=== PATIENT | male | born 1975 | race Caucasian/White ===

== ENCOUNTER → 2018-12-01 | Outpatient (CLI) | payer BC, OTHER ==
--- NOTE | 2018-12-01 11:32 | Diagnostic Imaging Report ---
CT ABDOMEN/PELVIS WO TECHNIQUE: Unenhanced CT imaging of the abdomen and pelvis was performed. 2-D reformats are created and submitted for interpretation. Automatic exposure controls were utilized to optimize patient dose. INDICATION: Left flank pain. COMPARISON: None available. FINDINGS: Evaluation of the abdominal viscera is mildly limited without contrast. Lower chest: The lung bases are clear. No pericardial or pleural effusion. Peritoneum: No free intraperitoneal air or fluid. Liver and biliary system: Unenhanced liver is normal. The gallbladder is normal. No biliary duct dilation. Spleen and Pancreas: Spleen is normal. Unenhanced pancreas is grossly normal. Adrenals: Normal. tract: Mild left hydronephrosis and hydroureter due to a 9 mm obstructing stone in the distal left ureter. This stone is located approximately 3-4 cm above the ureterovesicular junction. There are a few punctate nonobstructing left renal stones also present. No right renal or ureteral stones. Urinary bladder is normally filled without wall thickening. The prostate is not enlarged. GI tract: Stomach is partially filled with fluid and air, and there is no pathologic wall thickening. No bowel obstruction. No pericolonic inflammatory changes. Normal appendix. Vasculature and Lymph nodes: Normal caliber aorta. No abdominal or pelvic lymphadenopathy. Musculoskeletal: No concerning osseous lesion. IMPRESSION: 1. Mild to moderate left hydronephrosis due to a 9 mm obstructing stone in the distal left ureter. 2. There are additional punctate nonobstructing left renal stones. Dictated by: Dictated on workstation # [id number]
--- NOTE | 2018-12-01 12:59 | Diagnostic Imaging Report ---
INDICATION: Back pain and hematuria. TIME OF EXAM: 10:25 a.m. FINDINGS: Calcific density in the left pelvis is noted corresponding to distal left ureteric calculus noted on recent CT. Punctate calcifications overlie the lower pole of the left kidney as well. No right-sided renal calculi are seen. Bowel gas pattern is unremarkable. IMPRESSION: Left-sided urinary tract calculi, as described. Dictated by: Dictated on workstation # [id number]
== END ==
LOC: RAD 10:08
PROVIDERS: ATTEND Urology
DX: N13.2 Hydronephrosis with renal and ureteral calculous obstruction (principal)
CPT/HCPCS: 74018; 74176

== ENCOUNTER 2018-12-08 07:46 | Day surgery (SDC) | payer OTHER ==
[2018-12-08] VITALS (10 sets, daily range): BP systolic 114–143; BP diastolic 77–99
[~2018-12-08] VITALS: Ht 182.8 cm; Wt 84.0 kg
[2018-12-08] MEDS ORDERED: cefTRIAXone FOR IV USE 1,000 MG in WATER (STERILE) FOR INJECTION 10 ML IV ONE (08:15)
--- NOTE | 2018-12-08 08:32 | Diagnostic Imaging Report ---
INDICATION: Preop ureteral stone Abdominal film obtained at 8:05 a.m. and is compared to 12/01/2018. Calcification on the left side of the pelvis compatible with patient's known left ureteral stone is unchanged in position compared to 12/01/2018. Abdominal bowel gas pattern is unremarkable. There is no overt bony abnormality. IMPRESSION: No change in position of the calcification in the left of the pelvis compatible with patient's known left ureteral stone. Abdominal bowel gas pattern appears normal. Dictated by: Dictated on workstation # [id number]
--- NOTE | 2018-12-08 08:44 | Progress Note-Pre Operative ---
Pre-Operative Progress Note H&P Reviewed The H&P was reviewed, patient examined and no changes noted. Date Seen by Provider: Dec 08, 2018 Time Seen by Provider: 08:44 Date H&P Reviewed: Dec 08, 2018 Time H&P Reviewed: 08:44 Pre-Operative Diagnosis: LT DISTAL URETERAL STONE JULIO HERRERA MD Dec 08, 2018 08:44
[2018-12-08] MEDS: LACTATED RINGERS 1,000 ML IV PRN ×2 (08:55→10:42)
[2018-12-08] MEDS ORDERED: MIDAZOLAM 2 MG/2 ML (VERSED) VIAL ONE (09:00)
[2018-12-08] MEDS ORDERED: SEVOFLURANE (ULTANE) 15 ML INHAL SOLN ONE ×2 (09:00→10:54)
[2018-12-08] MEDS ORDERED: ROCURONIUM 10 MG/ML 5 ML SYRINGE IV ONE ×2 (09:00→09:46)
[2018-12-08] MEDS ORDERED: ONDANSETRON 4 MG/2 ML (SDV) Z0FRAN ONE (09:00)
[2018-12-08] MEDS ORDERED: proPOfol 200 MG/20 ML (DIPRIVAN) VIAL IV ONE (09:00)
[2018-12-08] MEDS ORDERED: DEXAMETHASONE 10 MG/ML (DECADRON) 1 ML VIAL ONE ×2 (09:00→10:10)
[2018-12-08] MEDS ORDERED: LIDOCAINE PF 2% 5 ML (XYLOCAINE) VIAL ONE (09:00)
[2018-12-08] MEDS ORDERED: fentaNYL INJECTION 100 MCG/2 ML AMP ONE (09:00)
[2018-12-08] MEDS ORDERED: ONDANSETRON 4 MG/2 ML (SDV) Z0FRAN IVP PRN ×2 (09:45→11:00)
[2018-12-08] MEDS ORDERED: morphine INJ 10 MG/ML 1ML (SYR OR VIAL) IVP ONE ×2 (09:45→11:00)
[2018-12-08] MEDS ORDERED: MEPERIDINE (DEMEROL) INJ 50 MG/ML IVP ONE ×2 (09:45→11:00)
[2018-12-08] MEDS ORDERED: FUROSEMIDE 40 MG/4 ML INJ (LASIX) ONE (10:10)
[2018-12-08] MEDS ORDERED: KETOROLAC 30 MG/ML VIAL ONE (10:10)
--- NOTE | 2018-12-08 10:58 | Progress Note-Post Operative ---
Post-Operative Progess Note Surgeon (s)/Sales Training Manager (s) Surgeon JULIO HERRERA MD Sales Training Manager: NONE Pre-Operative Diagnosis LT DISTAL URETERAL STONE Post-Operative Diagnosis SAME Procedure & Operative Findings Date of Procedure 12/08/18 Procedure Performed/Findings CYSTOSCOPY, RT RETROGRADE UROGRAM, LT URETEROSCOPY WITH STONE LITHOTRIPSY Anesthesia Type GENERAL Estimated Blood Loss Estimated blood loss (mL): NONE Specimens/Packing Specimens Removed NONE Packing: NONE JULIO HERRERA MD Dec 08, 2018 10:58
--- NOTE | 2018-12-08 10:59 | Discharge Inst-Urology ---
Discharge Inst-Urology Reconcile Patient Problems Problems Reviewed?: Yes Patient Instructions/Follow Up Plan/Assessment/Instructions Please make appointment to been seen in office in [address] home Increase oral fluids for 48 hours and then as needed. Diet and Activity as tolerated. If questions or concerns contact your physician Or seek help at emergency department. JULIO HERRERA MD Dec 08, 2018 10:59
[2018-12-08] MEDS ORDERED: HYDROmorphone 2 MG/ML VIAL (DILAUDID) IV ONE (11:00)
[2018-12-08] MEDS ORDERED: fentaNYL INJECTION 100 MCG/2 ML AMP IVP ONE (11:00)
[2018-12-08] MEDS ORDERED: PROMETHAZINE INJ 25 MG/ML (PHENERGAN) AMP IVP ONE (11:00)
--- NOTE | 2018-12-08 12:00 | NUR ---
VOIDED 650 CC CLEAR LIGHT RED URINE WITH X3 SMALL STONE FRAGMENTS PASSED. DENIES COMPLAINTS, TAKING PO FLUIDS WITHOUT PROBLEM.
[2018-12-08] MEDS ORDERED: SULF1TAB35 PO (12:46)
[2018-12-08] MEDS ORDERED: TAMS0.4C98 PO (12:46)
[2018-12-08] MEDS ORDERED: PHEN-640 PO (12:46)
[2018-12-08] MEDS ORDERED: HYDR-3870 PO (12:46)
--- NOTE | 2018-12-08 12:57 | NUR ---
ALERT, CHEERFUL, DENIES COMPLAINTS. VOIDED ADDITIONAL 600 CC CLEAR, PINK URINE WITHOUT PROBLEM. STATES HE IS READY FOR DISMISSAL.
--- NOTE | 2018-12-08 13:44 | Anesthesia-General Post-Op ---
General Patient Condition Mental Status/LOC: Same as Preop Cardiovascular: Satisfactory Nausea/Vomiting: Absent Respiratory: Satisfactory Pain: Controlled Complications: Absent Post Op Complications Complications None Follow Up Care/Instructions Patient Instructions None needed. Anesthesia/Patient Condition Patient Condition Patient is doing well, no complaints, stable vital signs, no apparent adverse anesthesia problems. No complications reported per nursing. UNA JIMENEZ CRNA Dec 08, 2018 13:44
--- NOTE | 2018-12-08 14:27 | Diagnostic Imaging Report ---
INDICATION: Status post ESWL. COMPARISON: CT dated 12/01/2018. FINDINGS: Single supine radiographic view of the abdomen was obtained. There is subtle asymmetric increased opacity projecting over the inferolateral cortex of the left sacrum, which is felt to correspond to interval fragmentation of previously described distal ureteral calculus. No other unexpected extraosseous calcifications or radiopaque foreign bodies are seen. Small bowel loops are nondistended. Osseous structures show no gross acute abnormalities. IMPRESSION: 1. Probable interval fragmentation of distal left ureteral calculus. Dictated by: Dictated on workstation # [id number]
--- NOTE | 2018-12-08 16:29 | OPERATIVE REPORT ---
DATE OF SERVICE: 12/08/2018 PREOPERATIVE DIAGNOSIS: Left distal ureteral stone, possible right. POSTOPERATIVE DIAGNOSIS: Left distal ureteral stone, possible right. OPERATION PERFORMED: Cystoscopy, right retrograde urogram. Left ureteroscopy with stone lithotripsy. SURGEON: Fabrice Herrera MD ANESTHESIA: General. COMPLICATIONS: None. DESCRIPTION OF PROCEDURE: With the patient in lithotomy position, genitalia were prepped and draped in the usual sterile fashion. Cystoscope was introduced under vision. The anterior urethra was normal. The prostate was nonobstructing. Bladder neck was opened. Ureteric orifices were normal except for sluggish efflux on the left side. The right side was normal. Using the foroblique lens, I passed a ureteral catheter in the right ureteral orifice intramural portion and injected contrast. There was no filling defect and complete emptying of the system confirming no stones on the right side because the patient was complaining of pain on the right side mostly. Then, I dilated the left ureteral orifice intramural portion to accommodate the left, I accommodated 6.9 Serbian semi-rigid ureteroscope. The stone was visualized. It was large and impacted and hard. I was able to break it and change the fragments proximally and break them up into very small fragments, some of them washed into the bladder. The ureter was safe at all time. The ureteroscope was removed. The cystoscope was reinserted to empty the bladder. The patient tolerated the procedure and anesthesia well and was sent to recovery room in stable condition. Job ID: [id number] DocumentID: [id number] Dictated Date: 12/08/2018 11:02:26 Waistline Joiner Date: 12/08/2018 16:28:50 Dictated By: FABRICE HERRERA MD
== END 2018-12-08 12:57 | disposition home or self-care (01) ==
LOC: SDC 07:46
PROVIDERS: ATTEND Urology
DX: N20.1 Calculus of ureter (principal); Z79.891 Long term (current) use of opiate analgesic; Z79.899 Other long term (current) drug therapy
CPT/HCPCS: 74018; 87081

== ENCOUNTER 2018-12-25 12:13 | Outpatient (RCR) | payer OTHER ==
[~2018-12-25 12:13] MED LIST: HYDR-3870 PO; PHEN-640 PO; SULF1TAB35 PO; TAMS0.4C98 PO
== END 2019-03-25 | disposition home or self-care (01) ==
LOC: LAB 12:13
PROVIDERS: ATTEND Urology
DX: N20.1 Calculus of ureter (principal)
CPT/HCPCS: 36415; 82140; 82340; 82507; 82570; 83735; 83945; 83986; 84105; 84133; 84300; 84392; 84560

== ENCOUNTER → 2020-01-26 | Outpatient (CLI) | payer OTHER ==
[~2020-01-26] MED LIST changes: -TAMS0.4C98 PO; +TMSL.4C PO
--- NOTE | 2020-01-26 09:38 | Diagnostic Imaging Report ---
INDICATION: H/O STONES. TECHNIQUE: Single supine view of the abdomen 8:30 AM CORRELATION STUDY: 12/08/2018 FINDINGS: Small calcification projecting over the inferior pole left kidney. No abnormal calcification along the expected course of either ureter. Bowel gas pattern unremarkable. IMPRESSION: 1. Probable small nonobstructing left renal stone. Dictated by: Dictated on workstation # [id number]
== END ==
LOC: RAD 07:49
PROVIDERS: ATTEND Urology
DX: Z87.442 Personal history of urinary calculi (principal)
CPT/HCPCS: 74018

== ENCOUNTER → 2021-01-18 | Outpatient (CLI) | payer OTHER ==
[~2021-01-18] MED LIST changes: -SULF1TAB35 PO; +SULF1TAB38 PO
--- NOTE | 2021-01-18 13:45 | Diagnostic Imaging Report ---
INDICATION: Followup calculi. COMPARISON: 01/26/2020 FINDINGS: Single frontal supine radiographic view of the abdomen was obtained. Note is again made of punctate extraosseous calcification projecting over the inferior pole of left kidney suggestive of nephrolithiasis. No other unexpected radiopaque foreign bodies or extraosseous calcifications are seen. Small bowel loops are nondistended. There is no large collection of free intraperitoneal air. Osseous structures show no gross acute abnormalities. IMPRESSION: 1. Nonobstructed small bowel gas pattern. 2. Probable nonobstructive left renal calculus. Dictated by: Dictated on workstation # [id number]
== END ==
LOC: RAD 11:37
PROVIDERS: ATTEND Urology
DX: Z87.442 Personal history of urinary calculi (principal)
CPT/HCPCS: 74018

== ENCOUNTER → 2022-01-30 | Outpatient (CLI) | payer OTHER ==
--- NOTE | 2022-01-30 18:22 | Diagnostic Imaging Report ---
EXAMINATION: Abdominal radiographs, single view, 2 images. DATE: January 30, 2022. CLINICAL INDICATION: 46-year-old male, abdominal pain. History of stones. COMPARISON: Abdominal radiograph January 18, 2021. COMMENTS: There is a 3 mm calcification projecting over the expected location of the left renal shadow which is unchanged and may reflect a nonobstructing renal stone. There is no identified abnormal radiodensity projecting along the expected courses of the ureters. There are no abnormally distended gas-filled segments of bowel. IMPRESSION: 1. Unchanged 3 mm probable left renal stone. 2. No interval radiographically apparent renal or ureteral stone identified. Dictated by: Dictated on workstation # [id number]
== END ==
LOC: RAD 11:56
PROVIDERS: ATTEND Urology
DX: N20.0 Calculus of kidney (principal)
CPT/HCPCS: 74018